=== PATIENT | male | born 1975 | race Caucasian/White ===

== ENCOUNTER 2021-10-05 08:07 | Outpatient (CLI) | payer BC, SELFPAY ==
--- NOTE | ~2021-10-05 | US_ITS ---
US abdomen limited INDICATION: Abnormal liver enzymes PROCEDURE: Realtime right upper abdominal ultrasound. COMPARISON: No prior studies for comparison. FINDINGS: The pancreas is normal without focal mass or pancreatic ductal dilation. Liver echotexture is diffusely increased, consistent with fatty infiltration. There is normal directional flow in the portal vein. Gallbladder surgically absent. Common bile duct measures 4 mm. No sonographic Bettencourt's sign. IMPRESSION: 1: Hepatic steatosis. Reviewed, dictated and finalized at location B. GER BOOK IMPRESSION: 1: Hepatic steatosis.
[2021-10-05 09:17] LABS: Alanine Aminotransferase 95 U/L (4-50); Albumin Level 4.6 g/dL (3.5-5.1); Alkaline Phosphatase 41 U/L (38-126); Aspartate Amino Transferase 62 U/L (17-59); Bilirubin,Total 0.9 mg/dL (0.2-1.3)
[2021-10-05 09:59] LABS: Hepatitis B Surface Antigen Negative (Negative)
[2021-10-05 10:06] LABS: HAV RESULT Negative (Negative); Hepatitis B Core IgM Result Negative (Negative)
[2021-10-05 10:16] LABS: Hepatitis C Virus Antibody Negative (Negative)
== END 2021-10-05 08:08 | disposition home or self-care (01) ==
PROVIDERS: PCP Family Medicine; Visit Provider Physician Assistant
DX: R74.8 Abnormal levels of other serum enzymes (principal); K76.0 Fatty (change of) liver, not elsewhere classified
CPT/HCPCS: 36415; 76705; 80074; 80076

== ENCOUNTER 2022-09-06 16:39 | Emergency (ER) | payer BC, SELFPAY ==
--- NOTE | ~2022-09-06 | CT_ITS ---
EXAMINATION: CT lumbar spine wo con DATE: 09/06/2022 19:52 INDICATION: Low back pain TECHNIQUE: Computed tomography (CT) of the lumbar spine was performed without intravenous contrast. T he dose-length product (DLP) was 1444.73 mGy-cm. Iterative reconstruction was used. COMPARISON: None FINDINGS: There are 5 mm of retrolisthesis of L5 on S1. Vertebral body alignment is otherwise maintai priscilla. There is moderate loss of intervertebral disc space height at L5-S1 and mild loss of interverteb ral disc space height at L4-5. The vertebral body heights are maintained. There is no fracture. 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 IMPRESSION: 1. Mild lumbar spondylosis without acute findings. Reviewed, dictated and finalized at location F. DING COORDINATOR
[2022-09-06 16:43] VITALS: BP 150/83; PULSE 91; RESP 14; TEMP 36.6; O2SAT 98
--- NOTE | 2022-09-06 17:12 | ED.GENADULT ---
HPI - General Adult General Chief complaint: Back Pain/Injury Stated complaint: back pain that got worse when getting in car Time Seen by Provider: 09/06/22 16:48 History of Present Illness HPI narrative: 47-year-old male presented to the emergency department for evaluation of right sided back pain that radiates down his right lower extremity. Patient states he has had intermittent back pain over the last few weeks. Patient has been following up with his chiropractor and felt that the manipulations were helping. Patient was started on steroids a few days ago and is a few days into the taper. Patient states initially his symptoms symptoms were improving with the steroids but have since began to worsen. Patient states when he was getting into his car today he had approximately 5 seconds right lower extremity numbness. Patient denies any current numbness or weakness. Patient denies any loss of bowel or bladder control. Patient denies any prior history of back surgery. Patient denies taking any blood thinners. Related Data Allergies Allergy/AdvReac Type Severity Reaction Status Date / Time No Known Allergies Allergy Verified 03/15/22 08:25 Review of Systems Review of Systems: CONSTITUTIONAL: Denies fever, chills, or sweats. EYES: Denies visual changes, redness, or discharge. ENT: Denies rhinorrhea, congestion, sore throat, or otalgia. CARDIOVASCULAR: Denies chest pain, palpitations, or edema. RESPIRATORY: Denies cough or dyspnea. GASTROINTESTINAL: Denies abdominal pain, nausea, vomiting, or diarrhea. GENITOURINARY: Denies dysuria or hematuria. SKIN: Denies rash or itching. MUSCULOSKELETAL: See HPI NEUROLOGIC: See HPI [facility] Past Medical History Medical History (Updated 09/06/22 @ 20:55 by Jose Silva MD) Broken wrist JESSICA (generalized anxiety disorder) Hyperlipidemia Hypertension Surgical History Surgical History History of cholecystectomy Family History Family History (Updated 03/15/22 @ 08:30 by Risa Patterson CMA) Father Hypertension Liver cancer Mother Breast cancer Other Cerebrovascular accident Diabetes mellitus Family history of malignant neoplasm Social History Social History (Updated 03/15/22 @ 08:31 by Risa Patterson CMA) Smoking status: Never smoker Second hand tobacco smoke exposure: No Alcohol intake: current Alcohol use details: Social Substance use: never Substance use type: does not use Living arrangements: with family Occupation/Education: occupation Gender identity (if verbalized by the patient): Male Spiritual care concerns: Yes Agree to blood products: Yes Exam Narrative: APPEARANCE: Well appearing, no pain, no distress, well-nourished. HEAD: normocephalic, atraumatic. EYES: PERRLA/EOMI, conjunctivae clear. NOSE: Normal no drainage NECK: Supple. No adenopathy, no masses. RESPIRATORY: Airway patent, respirations nonlabored. Clear to auscultation bilaterally, no rales, rhonchi, wheezing. CARDIOVASCULAR: Regular rate and rhythm without murmurs rubs or gallops. ABDOMINAL: Soft, nontender, nondistended, normal bowel sounds MUSCULOSKELETAL: Moves all extremities. Strength/ROM intact, No edema, No calf tenderness. NEURO: Alert. Cranial nerves II through XII intact. Normal strength reflexes. No numbness or weakness. Grossly intact SKIN: Warm, dry. Normal Color Course Course Emergency Course: CT of lumbar spine was ordered due to the duration of the patient's symptoms. Patient was provided Toradol, Flexeril and [place] for pain control. Patient did feel improved with pain control. CT scan showed no acute normality other than spondylosis. Patient was encouraged to have close follow-up with his primary care physician. Patient was provided [place] and Norflex for pain control and started on a new Medrol Dosepak. Patient states that his pain had been given to improve unti
[2022-09-06] MEDS: CYCLOBENZAPRINE HCL 10 MG TABLET PO (17:50)
[2022-09-06] MEDS: HYDROcodone/acetaminophen (*CRX) 5-325 MG TABLET 1 TAB PO (17:50)
[2022-09-06] MEDS: KETOROLAC 30 MG/ML VIAL (*BKC) IM (17:51)
--- NOTE | 2022-09-06 18:03 | PC.NURSE ---
Pt reports he was taken to CT but unable to lay on the table due to pain. Pt was given pain medication per OCT. Instructed to use call light to tell RN when he thinks he can tolerate the CT once pain medication starts working.
[2022-09-06 19:00] VITALS: BP 129/81; PULSE 81; RESP 14; O2SAT 96
[2022-09-06] MEDS: HYDROmorphone HCL INJ (*CRX) 1 MG/ML SYR IV PUSH (19:31)
[2022-09-06 20:58] VITALS: BP 131/76; PULSE 83; RESP 19; O2SAT 99
== END 2022-09-06 21:05 | disposition home or self-care (01) ==
PROVIDERS: Emergency Provider Emergency Medicine; PCP Family Medicine
DX: M54.31 Sciatica, right side (principal); E78.5 Hyperlipidemia, unspecified; I10 Essential (primary) hypertension; F41.1 Generalized anxiety disorder
CPT/HCPCS: 72131; 96372; 96374; 99284; A9270; J1170; J1885

== ENCOUNTER 2023-01-29 14:04 | Outpatient (CLI) | payer BC, SELFPAY ==
--- NOTE | ~2023-01-29 | US_ITS ---
Thyroid ultrasound. Clinical History: Goiter, hypothyroid Findings: Real-time sonography of the thyroid gland was performed. The right lobe measures 6.6 x 2.0 x 3.3 cm. The left lobe measures 5.6 x 2.7 x 3.6 cm. The isthmus is 8 mm in AP diameter. Thyroid gland is diffusely heterogeneous, without definite discrete nodule. There is relative hyperva scularity throughout the thyroid gland on color imaging. Impression: Enlarged, heterogeneous thyroid gland with relative hypervascularity. Consider thyroiditis versus oth er causes for hypothyroidism. Consider nuclear medicine uptake scan as indicated. No discrete thyroid nodule evident.. Reviewed, dictated and finalized at location M. Impression: Enlarged, heterogeneous thyroid gland with relative hypervascularity. Consider thyroiditis versus other causes for hypothyroidism. Consider nuclear medicine u ptake scan as indicated. No discrete thyroid nodule evident..
== END 2023-01-29 14:05 | disposition home or self-care (01) ==
PROVIDERS: PCP Physician Assistant Medical; Visit Provider Internal Medicine
DX: E05.90 Thyrotoxicosis, unspecified without thyrotoxic crisis or storm (principal)
CPT/HCPCS: 76536

== ENCOUNTER 2024-01-06 09:32 | Outpatient (CLI) | payer BC, SELFPAY ==
--- NOTE | ~2024-01-06 | US_ITS ---
EXAMINATION: US thyroid DATE: 01/06/2024 09:59 INDICATION: Thyrotoxicosis, unspecified without thyrotoxic crisis. TECHNIQUE: Multiple ultrasound images of the thyroid were obtained. COMPARISON: Thyroid ultrasound 01/29/2023 FINDINGS: The right thyroid lobe measures 7.4 x 2.8 x 2.3 cm. The left thyroid lobe measures 6.8 x 3.6 x 3.7 c m. The thyroid demonstrates diffusely heterogeneous echogenicity with multiple ill-defined nodules o f similar ultrasound appearance. Vascularity is increased. IMPRESSION: 1. Heterogeneous, hypervascular thyroid, likely chronic lymphocytic (Kalina's) thyroiditis. Reviewed, dictated and finalized at location A. IMPRESSION: 1. Heterogeneous, hypervascular thyroid, likely chronic lymphocytic (Kalina' s) thyroiditis.
== END 2024-01-06 09:33 | disposition home or self-care (01) ==
PROVIDERS: PCP Family Medicine; Visit Provider Internal Medicine
DX: E04.9 Nontoxic goiter, unspecified (principal); E05.90 Thyrotoxicosis, unspecified without thyrotoxic crisis or storm
CPT/HCPCS: 76536

== ENCOUNTER 2024-10-11 12:34 | Outpatient (CLI) | payer OTHER, SELFPAY | END 2024-10-11 12:35 | disposition home or self-care (01) | PROVIDERS: PCP Family Medicine; Visit Provider Internal Medicine | DX: E04.1 Nontoxic single thyroid nodule (principal) | CPT/HCPCS: 10005; 88172; 88173; 88177; 88305 ==